=== PATIENT | female | born 1955 ===

== ENCOUNTER 2020-10-16 20:12 | Emergency (ER) | payer BC, SELFPAY ==
[2020-10-16 21:20] LABS: Basophils % 0.8 % (0-1.3); Hematocrit 35.4 % (36.0-45.0); Lymphocytes % 50.3 % (15.3-44.8); MPV 6.7 fL (7.6-11.3); RBC Red Blood Cell Count 3.31 M/uL (3.86-4.86)
[2020-10-16 21:26] LABS: Protime INR 0.98
[2020-10-16] MEDS ORDERED: NA CHLORIDE 0.9% 1,000 ML ONE ×2 (21:42→23:26)
[2020-10-16 22:09] LABS: ALT/SGPT 17 U/L (12-78); AST/SGOT 30 U/L (15-37); Albumin 3.4 g/dL (3.4-5.0); Alkaline Phosphatase 52 U/L (45-117); BUN Blood Urea Nitrogen 4 mg/dL (7-18); Bicarbonate 27 mmol/L (21-32); Bilirubin Direct 0.2 mg/dL (0-0.2); Bilirubin Total 0.5 mg/dL (0.2-1.0); Glucose Level 88 mg/dL (74-106); Magnesium 2.2 mg/dL (1.8-2.4); NT PRO-BNP 221 pg/mL (<125); Potassium 2.7 mmol/L (3.5-5.1); Protein, Total 6.8 g/dL (6.4-8.2); Sodium Level 142 mmol/L (136-145); Troponin (Emerg Dept Use Only) < 0.02 ng/mL (0.0-0.045)
[2020-10-16 23:03] LABS: Blood Morphology Comment NOTED (NOT SEEN); Macrocytosis SLIGHT; Platelet Estimate ADEQ; White Blood Cell Scan OK (OK)
[2020-10-16] MEDS ORDERED: THIAMINE 200 MG/2 ML INJ ONE (23:26)
[2020-10-16] MEDS ORDERED: FOLIC ACID 5 MG/ML VIAL ONE (23:26)
[2020-10-16] MEDS ORDERED: MULTIVITAMINS 10 ML VIAL (INJ) IV ONE (23:26)
[2020-10-16] MEDS ORDERED: KCL 20 MEQ/100 mL IVPB 20 MEQ/100 ML BAG IV ONE (23:27)
--- NOTE | 2020-10-17 04:44 | ER ---
Nurse's Notes [facility] Name: Alley Michelle Age: 65 yrs Sex: Female : 1955 Arrival Date: 10/16/2020 Time: 20:55 Bed 5 Private MD: Diagnosis: Fall (on) (from) unspecified stairs and steps;Alcohol use, unspecified with intoxication Presentation: 10/16 21:00 Chief complaint: EMS states: unwitnessed fall in the kitchen around 1830H, no LOC but rr5 she more and more forgetful to what happened on her. sustained lacerated wound back of the head. 21:00 Coronavirus screen: Client denies travel out of the [place] in the last 14 days. At this rr5 time, the client does not indicate any symptoms associated with coronavirus-19. Ebola Screen: Unable to complete the Ebola screening because:. Initial Sepsis Screen: Does the patient meet any 2 criteria? No. Patient's initial sepsis screen is negative. Does the patient have a suspected source of infection? No. Patient's initial sepsis screen is negative. Risk Assessment: Do you want to hurt yourself or someone else? Unable to obtain. Onset of symptoms was October 16, 2020 at 18:30. Care prior to arrival: Cervical collar in place. 21:00 Method Of Arrival: EMS: [facility] rr5 21:00 Acuity: OPAL 2 rr5 Historical: - Allergies: 21:08 PENICILLINS; rr5 21:08 Aspirin; rr5 - Home Meds: 21:08 metoprolol succinate oral oral [Active]; Ramipril Oral [Active]; tramadol Oral rr5 [Active]; Trazodone Oral [Active]; - PMHx: 21:08 Hypertension; rr5 - Immunization history:: Adult Immunizations unknown. - Social history:: Smoking status: unknown. Screenin:10 Abuse screen: Denies threats or abuse. Denies injuries from another. Nutritional rr5 screening: No deficits noted. Tuberculosis screening: No symptoms or risk factors identified. Fall risk At risk due to injury, age, prior history of falls, Intervention for positive screen: ED Physician notified, instructed to call for assist when getting up, side rails up. Exposure risk/Travel Screening: None identified. Primary Survey: 21:00 NO uncontrolled hemorrhage observed. A: The patient is alert. Airway: patent, Oral rr5 cavity: clear, gag reflex present, Trachea midline. Breathing/Chest: Respiratory pattern: regular, Respiratory effort: spontaneous, unlabored, Breath sounds: clear, bilaterally. Chest inspection: symmetrical rise and fall of the chest. Circulation: Pulses: palpable right radial artery and left radial artery. Disability Alert. Exposure/Environment: All clothing and personal items were removed. There is no evidence of uncontrolled external bleeding. Obvious injury(ies) are noted at this time: lacerated wound back of the head A warming method has been applied: A warm blanket has been provided to the patient. 22:00 Reassessment Airway Airway Patent Oral cavity Clear +Gag reflex Trachea Midline rr5 Breathing/Chest Respiratory pattern Regular Respiratory effort Spontaneous Unlabored Breath sounds Clear Chest inspection Symmetrical Circulation Pulses Palpable Disability Alert. Secondary Survey: 21:10 HEENT: Head Other lacerated wound. Gastrointestinal: Abdomen is flat. : No signs rr5 and/or symptoms were reported regarding the genitourinary system. Musculoskeletal: Capillary refill < 3 seconds. Assessment: 21:10 General: Appears in no apparent distress. comfortable, Behavior is calm, cooperative. rr5 Pain: Unable to use pain scale. Patient is disoriented. Neuro: Level of Consciousness is awake, alert, confused, Oriented to person. EENT: No signs and/or symptoms were reported regarding the EENT system. Cardiovascular: Capillary refill < 3 seconds Patient's skin is warm and dry. Respiratory: Airway is patent Respiratory effort is even, unlabored, Respiratory pattern is regular, symmetrical. GI: No signs and/or symptoms were reported involving the gastrointestinal system. Derm: Skin is intact, is healthy with good turgor, Skin temperature is warm. Musculoskeletal: Capillary refill < 3 seconds. 23:04 Reassessment: [id number] FRANCISCO rv Vital Signs: 21:00 BP 144 / 46; Pulse 72; Resp 16; Temp 98; Pulse Ox 98% ; Weight 55 kg; rr5 22:00 BP 136 / 89; Pulse 75; Resp 17; Temp 98.1; Pulse Ox 98% ; rr5 23:00 BP 125 / 89; Pulse 79; Resp 17; Pulse Ox 100% ; rr5 23:49 BP 135 / 70; Pulse 70; Resp 16; Pulse Ox 98% ; rr5 ED Course: 20:55 Patient arrived in ED. iw 20:55 Kym Conroy MD is Attending Physician. ma2 20:58 Rolando Pereira PA is PHCP. cp 21:02 Reid Giraldo, MARIANELA is Primary Nurse. rr5 21:05 Inserted saline lock: 20 gauge in right forearm, using aseptic technique. ,using rr5 aseptic technique. inserted by robin Blood collected. 21:06 Triage completed. rr5 21:08 Arm band placed on right wrist. rr5 21:12 Patient has correct armband on for positive identification. Placed in gown. Bed in low rr5 position. Call light in reach. Side rails up X2. front desk monitor on. Pulse ox on. NIBP on. 21:31 CT Traumagram (Head C Spine CAP wo con) In Process Unspecified. EDMS 21:40 XRAY Chest (1 view) In Process Unspecified. EDMS 23:49 IV discontinued, patient pulled her IV. rr5 23:49 Inserted saline lock: 18 gauge in left forearm, using aseptic technique. rr5 Administered Medications: 21:19 Drug: NS 0.9% 1000 ml Route: IV; Rate: 125 ml/hr; Site: right forearm; rv 23:00 Drug: NS 0.9% 500 ml Route: IV; Rate: bolus; Site: left forearm; rr5 10/17 04:01 Follow up: IV Status: Completed infusion; IV Intake: 500ml rv 10/16 23:15 Drug: Banana Bag - (NS 0.9% 1000 ml, foLIC Acid 1 mg, Thiamine 100 mg, Multivitamin 1 rr5 amp) Route: IV; Rate: 150 ml/hr; Site: left forearm; 10/17 04:01 Follow up: IV Status: Completed infusion; IV Intake: 1000ml rv 10/16 23:20 Drug: Potassium Chloride 20 mEq Route: IV; Rate: calculated rate; Site: left forearm; rr5 10/17 04:01 Follow up: IV Status: Completed infusion; IV Intake: 100ml rv Intake: 04:01 IV: 500ml; Total: 500ml. rv 04:01 IV: 1000ml; Total: 1500ml. rv 04:01 IV: 100ml; Total: 1600ml. rv Outcome: 04:44 Discharge ordered by . ma2 05:49 Patient left the ED. rr5 Signatures: Dispatcher [employer] Carla Mcallister RN RN Rolando Landa PA PA cp Alzahri, Mohammad, MD MD ma2 Edin Antoine RN RN rv Reid Giraldo RN RN rr5 Corrections: (The following items were deleted from the chart) 10/16 21:08 21:00 Chief complaint: EMS states: unwitnessed fall in the kitchen around 1830H, no LOC rr5 but she more and more forgetful to what happened on her rr5
--- NOTE | 2020-10-17 04:44 | EDPHYS ---
Physician Documentation [facility] Name: Alley Michelle Age: 65 yrs Sex: Female : 1955 Arrival Date: 10/16/2020 Time: 20:55 Bed 5 Private MD: ED Physician Kym Conroy HPI: 10/16 21:00 This 65 yrs old Female presents to ER via EMS with complaints of Fall Injury. cp 21:00 Details of fall: The patient fell from an upright position, while walking. cp 21:00 Onset: The symptoms/episode began/occurred just prior to arrival. Associated injuries: cp The patient sustained injury to the head, laceration, of the right occipital area. EMS reports they were called to home of patient after unwitnessed fall tonight. Patient reports losing balance and falling in kitchen. Historical: - Allergies: 21:08 PENICILLINS; rr5 21:08 Aspirin; rr5 - Home Meds: 21:08 metoprolol succinate oral oral [Active]; Ramipril Oral [Active]; tramadol Oral rr5 [Active]; Trazodone Oral [Active]; - PMHx: 21:08 Hypertension; rr5 - Immunization history:: Adult Immunizations unknown. - Social history:: Smoking status: unknown. ROS: 21:05 Constitutional: Negative for fever. cp 21:05 Cardiovascular: Negative for chest pain. cp 21:05 Respiratory: Negative for cough, shortness of breath. 21:05 Abdomen/GI: Negative for abdominal pain, vomiting, diarrhea, constipation. 21:05 MS/extremity: Positive for pain, of the right hip, Negative for decreased range of motion, deformity. 21:05 Skin: Positive for laceration(s), of the scalp. 21:05 Neuro: Negative for loss of consciousness, seizure activity, syncope. 21:05 All other systems are negative. Exam: 21:10 Constitutional: The patient appears in no acute distress, alert, awake, cp non-diaphoretic, non-toxic, well developed, frail. 21:10 Head/face: Noted is a laceration(s), that is deep, of the right occipital area. cp 21:10 Eyes: Periorbital structures: appear normal, Pupils: equal, round, and reactive to light and accomodation, Extraocular movements: intact throughout, Conjunctiva: normal, no exudate, no injection, Lids and lashes: appear normal, bilaterally. 21:10 ENT: External ear(s): are unremarkable, Nose: is normal, Mouth: is normal, Posterior pharynx: Airway: no evidence of obstruction, patent. 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 21:10 Chest/axilla: Inspection: normal, Palpation: is normal, no crepitus, no tenderness. 21:10 Cardiovascular: Rate: normal, Rhythm: regular. 21:10 Respiratory: the patient does not display signs of respiratory distress, Respirations: normal, no use of accessory muscles, no retractions, labored breathing, is not present, Breath sounds: are clear throughout, no decreased breath sounds. 21:10 Abdomen/GI: Inspection: abdomen appears normal, Palpation: abdomen is soft and non-tender, in all quadrants. 21:10 Musculoskeletal/extremity: Extremities: grossly normal except: noted in the right hip: pain, There is no evidence of decreased ROM, deformity. 21:10 Neuro: Orientation: to person, situation, Mentation: able to follow commands, slow to respond, Motor: moves all fours, strength is normal. 21:41 ECG was reviewed by the Attending Physician. cp Vital Signs: 21:00 BP 144 / 46; Pulse 72; Resp 16; Temp 98; Pulse Ox 98% ; Weight 55 kg; rr5 22:00 BP 136 / 89; Pulse 75; Resp 17; Temp 98.1; Pulse Ox 98% ; rr5 23:00 BP 125 / 89; Pulse 79; Resp 17; Pulse Ox 100% ; rr5 23:49 BP 135 / 70; Pulse 70; Resp 16; Pulse Ox 98% ; rr5 Laceration: 10/17 00:15 Wound Repair of 3cm ( 1.2in ) subcutaneous laceration to scalp. Distal cp neuro/vascular/tendon intact. Wound prep: Simple cleansing by nurse. Skin closed with 4 1-0 Isabel using staple gun. Patient tolerated well. MDM: 10/16 20:55 Patient medically screened. ma2 10/17 01:30 Data reviewed: vital signs, nurses notes, lab test result(s), EKG, radiologic studies, cp CT scan. Transition of care: After a detail discussion of the patient's case, care is transferred to Kym Conroy MD. 10/16 20:56 Order name: Basic Metabolic Panel [facility] 10/16 20:56 Order name: CBC with Diff [facility] 10/16 20:56 Order name: Type And Screen [facility] 10/16 20:56 Order name: LFT's; Complete Time: 22:40 ma2 10/16 22:40 Interpretation: Normal except: A/G 1.0. cp 10/16 20:56 Order name: Magnesium; Complete Time: 22:40 ma2 10/16 20:56 Order name: NT PRO-BNP; Complete Time: 22:40 ma2 10/16 20:56 Order name: PT-INR; Complete Time: 22:40 nh2 10/16 20:56 Order name: Troponin (emerg Dept Use Only); Complete Time: 22:40 [facility] 10/16 20:57 Order name: Basic Metabolic Panel; Complete Time: 22:40 EDMS 10/16 22:40 Interpretation: Normal except: K 2.7; BUN 4; CRE 0.38. cp 10/16 20:57 Order name: CBC with Automated Diff; Complete Time: 00:45 EDMS 10/16 21:27 Interpretation: Normal except: RBC 3.31; HCT 35.4; MCV 107.1; MCH 38.3; RDW 15.3; MPV cp 6.7; LYM% 50.3. 10/16 20:57 Order name: Type and Screen; Complete Time: 22:40 EDMS 10/16 20:59 Order name: ETOH Level; Complete Time: 22:40 cp 10/16 22:40 Interpretation: Abnormal: ETOH 294. cp 10/16 20:56 Order name: CT Traumagram (Head C Spine CAP wo con) [facility] 10/16 20:56 Order name: Labs collected and sent; Complete Time: 21:19 nh2 10/16 20:56 Order name: XRAY Chest (1 view) [facility] 10/16 20:56 Order name: EKG; Complete Time: 20:58 nh2 10/16 20:56 Order name: Cardiac monitoring; Complete Time: 21:19 ma2 10/16 20:56 Order name: EKG - Nurse/Tech; Complete Time: 04:02 nh2 10/16 20:56 Order name: IV Saline Lock; Complete Time: 21:19 [facility] 10/16 20:56 Order name: O2 Per Protocol; Complete Time: 21:19 [facility] 10/16 20:56 Order name: O2 Sat Monitoring; Complete Time: 21:19 [facility] 10/16 20:59 Order name: Urine Dipstick-Ancillary (obtain specimen); Complete Time: 04:02 cp 10/16 23:04 Order name: CBC Smear Scan; Complete Time: 00:45 EDMS EC/05 21:41 Rate is 67 beats/min. Rhythm is regular. DC interval is normal. QRS interval is normal. cp QT interval is prolonged at 478 msec. T waves are Inverted in leads aVL, aVR. Interpreted by me. Reviewed by me. Administered Medications: 21:19 Drug: NS 0.9% 1000 ml Route: IV; Rate: 125 ml/hr; Site: right forearm; rv 23:00 Drug: NS 0.9% 500 ml Route: IV; Rate: bolus; Site: left forearm; rr5 10/17 04:01 Follow up: IV Status: Completed infusion; IV Intake: 500ml rv 10/16 23:15 Drug: Banana Bag - (NS 0.9% 1000 ml, foLIC Acid 1 mg, Thiamine 100 mg, Multivitamin 1 rr5 amp) Route: IV; Rate: 150 ml/hr; Site: left forearm; 10/17 04:01 Follow up: IV Status: Completed infusion; IV Intake: 1000ml rv 10/16 23:20 Drug: Potassium Chloride 20 mEq Route: IV; Rate: calculated rate; Site: left forearm; rr5 10/17 04:01 Follow up: IV Status: Completed infusion; IV Intake: 100ml rv Disposition: 04:43 Co-signature as Attending Physician, Kym Conroy MD. nh2 Disposition: 10/17/20 04:44 Discharged to Home. Impression: Fall (on) (from) unspecified stairs and steps, Alcohol use, unspecified with intoxication. - Condition is Stable. - Discharge Instructions: Fall Prevention in the Home. - Prescriptions for Diclofenac Sodium 75 mg Oral Tablet Sustained Release - take 1 tablet by ORAL route 2 times per day; 30 tablet. Klor- Con 8 mEq Oral Tablet Sustained Release - take 1 tablet by ORAL route once daily; 20 tablet. - Medication Reconciliation Form, Thank You Letter, Antibiotic Education, Prescription Opioid Use form. - Follow up: Private Physician; When: Tomorrow; Reason: If symptoms return. Signatures: Dispatcher [employer] EDMS Rolando Pereira PA PA cp Alzahri, Mohammad, MD MD ma2 Edin Antoine RN RN Reid Nicole RN RN rr5 Corrections: (The following items were deleted from the chart) 05:49 04:44 10/17/2020 04:44 Discharged to Home. Impression: Fall (on) (from) unspecified rr5 stairs and steps; Alcohol use, unspecified with intoxication. Condition is Stable. Prescriptions for Diclofenac Sodium 75 mg Oral Tablet Sustained Release - take 1 tablet by ORAL route 2 times per day; 30 tablet, Klor-Con 8 mEq Oral Tablet Sustained Release - take 1 tablet by ORAL route once daily; 20 tablet. and Forms are Medication Reconciliation Form, Thank You Letter, Antibiotic Education, Prescription Opioid Use. Follow up: Private Physician; When: Tomorrow; Reason: If symptoms return. ma2
[2020-10-17 06:00] VITALS: TEMP 98.1
[2020-10-17 06:02] VITALS: BP 135/70; O2SAT 98
--- NOTE | 2020-10-17 07:18 | EKG ---
Test Date: 2020-10-16 Test Time: 21:32:20 Systems Engineering Manager: RR MEASUREMENT RESULTS: Intervals: Rate: 67 NC: 134 QRSD: 96 QT: 478 QTc: 505 Willet: P: 65 NC: 134 QRS: 89 T: 64 INTERPRETIVE STATEMENTS: Normal sinus rhythm Nonspecific ST and T wave abnormality Prolonged QT Abnormal ECG No previous ECG available for comparison Electronically Signed On 10-17-20 07:17:30 CDT by Kalyan Snider
--- NOTE | 2020-10-17 08:52 | RAD REPORT ---
EXAM DESCRIPTION: RAD - Chest Single View - 10/16/2020 9:40 pm CLINICAL HISTORY: CONGESTION Chest pain. COMPARISON: No comparisons FINDINGS: Portable technique limits examination quality. Vague area of nodularity is seen projecting in the inferior aspect of the right lung. This is questio nable for possible area of underlying nodularity. The lungs are otherwise clear. The heart is normal in size. Nonemergent followup CT chest assessment may be considered.
--- NOTE | 2020-10-17 11:15 | RAD REPORT ---
EXAM DESCRIPTION: Head C Spine Cap Wo Con. RadLex: CT HEAD CERVICAL SPINE CHEST ABDOMEN PELVIS WITHOUT IV CONTRAST CLINICAL HISTORY: PAIN following a fall. TECHNIQUE: Axial, coronal, and sagittal images through the brain were performed in the absence of in travenous contrast. CT of the cervical spine was performed without contrast. Axial, coronal, and sagittal reconstructions were created and sent to PACS. CT of the chest, abdomen, and pelvis was performed without oral or intravenous contrast. Axial, coron al, and sagittal reconstructions were created and sent to PACS. These exams were performed according to our departmental dose-optimization program which includes use of Automated Exposure Control, adjustment of the mA and/or kV according to patient size and/or use o f iterative reconstruction technique. COMPARISON: None. FINDINGS: CT Head: There is diffuse age-appropriate atrophy seen throughout the brain parenchyma. Mild periventricular w jag matter changes are seen to be present and there is moderate ex vacuo dilatation of the ventricul ar system. There is no intra-axial or extra-axial bleed. There is no mass or mass effect. The visualized paranasal sinuses and mastoid air cells are patent. No fracture is identified. CT cervical spine: No acute osseous abnormality identified. Anterior cervical spine hardware with discectomy from C5 thr ough C7. Vertebral body height and alignment are maintained. No atlantodental interval widening. Atla ntoaxial alignment is maintained. C2-C3: Small posterior disc osteophyte complex. No significant central canal or neuroforaminal narrow ing. C3-C4: Posterior disc osteophyte complex results in borderline narrowing of the central canal to 0.8 cm AP. No significant neuroforaminal narrowing. C4-C5: Posterior disc osteophyte complex results in mild narrowing of the central canal to 0.6 to 0.7 cm AP. No significant neuroforaminal narrowing. C5-C6: Postsurgical level. No significant central canal or neuroforaminal narrowing. C6-C7: Postsurgical level. No significant central canal or neuroforaminal narrowing. Paraspinal soft tissues: Unremarkable. CT chest: Lungs and pleura: No pulmonary consolidation. No pleural effusion. No pneumothorax. Mild biapical ple ural parenchymal fibrosis. Mild diffuse pulmonary intralobular septal thickening. Few tiny peripheral micronodules in along the lateral pleura of the right upper lobe. Mediastinum and neck: No mediastinal lymphadenopathy identified by CT size criteria. Unremarkable iain earance of the thyroid gland. Cardiac: No cardiomegaly or pericardial effusion. No thoracic aortic aneurysm. Mild calcific aortic a therosclerosis. Small amount of coronary artery calcifications. CT abdomen/pelvis: Hepatobiliary: No obvious hepatic lesion identified. Gallbladder sludge. No gallbladder wall thickeni ng or surrounding inflammatory changes. No biliary ductal dilatation. Pancreas: Coarse calcification in the region of the pancreatic head, measuring 1 cm in extent right n o main pancreatic duct dilatation, or other pancreatic abnormality identified. Spleen: Unremarkable. Gastrointestinal: No evidence of bowel obstruction or perienteric inflammation. Changes suggestive of prior right hemicolectomy. No obvious bowel wall thickening or hematoma formation. Adrenals: No abnormality identified in either adrenal gland. Renal: Tiny calcification in the mid left kidney cortex, favored a parenchymal calcification. No obvi ous parenchymal abnormality in either kidney. No hydronephrosis or urolithiasis. Bladder/Reproductive: Mild diffuse bladder wall thickening in the setting of underdistention. Senesce nt changes of the uterus. Vascular/Lymphatics: No lymphadenopathy identified by CT size criteria. Abdominal aorta is normal in caliber. Musculoskeletal: No concerning osseous lesion identified. Prior healed multilevel right and left-side d rib fractures. No acute rib fracture is identified. Osteopenia. Transitional lumbosacral vertebral body, with and osseous fusion on the right. Degenerative minimal grade 1 anterolisthesis at L5-S1. Bi lateral proximal femoral hardware, with no obvious concerning perihardware lucencies. Heterotopic oss ification about the right femur greater and lesser trochanters. Fluid / peritoneum: No significant free fluid. No free intraperitoneal air identified. IMPRESSION 1. No acute intracranial abnormality identified. Chronic age-related and microvascular ischemic changes. 2. No acute osseous abnormality identified in the cervical spine. Postsurgical and degenerative gallito nges, as described. 3. No acute abnormality identified in the chest, abdomen, or pelvis. Chronic findings, as described . 4. Nonspecific small pancreatic head calcification, possibly a dystrophic calcification or sequela of chronic pancreatitis. Recommend follow-up CT or MRI in six months, versus comparison with any outs jeannie prior cross-sectional abdominal imaging, to evaluate for an underlying lesion. 5. Few tiny right upper lobe pulmonary nodules. If patient is low risk for malignancy, no routine f ollow-up imaging is recommended; if patient is high risk for malignancy, a non-contrast Chest CT at 1 2 months is optional (Reference: Radiology. 2017; 284(1):228-43). Electronically signed by: Jania Amezquita MD 10/16/2020 9:57 PM CDT Due to temporary technical issues with the PACS/Fluency reporting system, reports are being signed by the in house radiologist without review as a courtesy to ensure prompt reporting. The interpreting r adiologist is fully responsible for the content of the report.
== END 2020-10-17 05:49 | disposition home or self-care (01) ==
LOC: ER 20:12
PROC: 0JQ00ZZ Repair Scalp Subcutaneous Tissue and Fascia, Open Approach (ICD-10-PCS; principal; 2020-10-17)
DX: S01.01XA Laceration without foreign body of scalp, initial encounter (principal); F10.929 Alcohol use, unspecified with intoxication, unspecified; W10.9XXA Fall (on) (from) unspecified stairs and steps, initial encounter; Y92.000 Kitchen of unspecified non-institutional (private) residence as the place of occurrence of the external cause; I10 Essential (primary) hypertension; Z88.0 Allergy status to penicillin; Z88.6 Allergy status to analgesic agent
CPT/HCPCS: 36415; 70450; 71045; 71250; 72125; 80048; 80076; 80320; 83735; 83880; 84484; 85025; 85610; 86850; 86900; 86901; 93005; 96365; 96366; 99284; J3411; J3480; J7030

== ENCOUNTER 2020-11-12 22:55 | Emergency (ER) | payer BC ==
--- OUTSIDE RECORDS SUMMARY | 2020-11-12 22:58 | XMS REPORT | Continuity of Care Document ---
:1955 Author Organization [facility] t Address [address] [place] [address] Care Team Providers Name Role Phone Renny Wilder MD Attending Clinician Remigio Mathur MD Attending Clinician Annie Cat RN Attending Clinician Ck RIBEIRO Attending Clinician Alyssa RIBEIRO Attending Clinician Salena Washburn Attending Clinician Malini ANTONY, Jeyson Attending Clinician Jacob RIBEIRO Attending Clinician Regina Mensah MD Attending Clinician Doctor Unassigned, Name Attending Clinician Unavailable Radiology Attending Clinician Unavailable Alyssa RIBEIRO Admitting Clinician Jacob RIBEIRO Admitting Clinician Problems This patient has no known problems. Allergies, Adverse Reactions, Alerts Allergy Allergy Status Severity Reaction(s) Onset Inactive Treating Comm ents Source Name Type Date Date Clinician Peniclli Adverse Active Info Not [facility] aspirin Adverse Active Info Not [facility] Reaction Available [facility] Sulfa Adverse Active Info Not [facility] Reaction Available [facility] Medications Ordered Filled Start Stop Current Ordering Indication Dosage Frequency Signature Comments Components Source Medication Medication Date Date Medication? Clinician (SIG) Name Name Gabapentin Gabapentin Yes Isidro [address] [facility] Trazodone Trazodone Yes Isidro not [facility] HCl HCl Singh defined [facility] Filion Filion Yes Isidro [address] [facility] Singh as needed [facility] Xanax XR Xanax XR Yes Isidro not [facility] Singh defined [facility] Clobetasol Clobetasol Yes Isidro not [facility] Propionate Propionate [facility] defined [facility] Triamcinolo Triamcinolo Yes Isidro not [facility] ne ne [facility] defined [facility] Gatifloxaci Gatifloxaci Yes Isidro not [facility] n [facility] defined [facility] Tramadol Tramadol Yes Isidro not [facility] HCl HCl [facility] defined [facility] Nitrofurant Nitrofurant Yes Isidro not [facility] oin Monohyd oin Monohyd Singh defined [facility] Hydrocodone Hydrocodone Yes Isidro not [facility] -Acetaminop -Acetaminop Singh defined [facility] EPINEPHrine EPINEPHrine Yes Isidro not [facility] Singh defined [facility] Fluocinonid Fluocinonid Yes Isidro not [facility] e Singh defined [facility] Desonide Desonide Yes Isidro not [facility] defined [facility] Cephalexin Cephalexin Yes Isidro not [facility] defined [facility] Tobramycin- Tobramycin- Yes Isidro not [facility] Dexamethaso Dexamethaso Singh defined [facility] Lidocaine Lidocaine Yes Isidro not [facility] Omeprazole Omeprazole Yes Isidro not [facility] defined [facility] Klor-Con Klor-Con Yes Isidro not [facility] defined [facility] Procedures This patient has no known procedures. Encounters Start End Encounter Admission Attending Care Care Encounter Source Date/Time Date/Time Type Type Clinicians Facility Department ID 2020-06-17 2020-06-17 [facility] [id number] 2020-04-03 2020-04-03 [facility] [id number] 00:00:00 00:00:00 Renny SPECIALTY [id number] CARE [id number] [facility] [id number] 2020-04-02 2020-04-02 [facility] [id number] 00:00:00 00:00:00 Remigio PRIMARY [id number] CARE [id number] [facility] [id number] 2020-03-27 2020-03-27 Telephone [facility] 1.2.840.114 [id number] 00:00:00 00:00:00 Renny PRIMARY [id number] CARE [id number] [facility] [id number] 2020-03-14 2020-03-14 Transition Manda Cat [id number] 00:00:00 00:00:00 of Care Annie Ortiz [id number] [place] [id number] 2020-03-05 2020-03-13 [facility] Ck Brandt Hartleynie [id number] 19:43:00 17:57:00 Encounter Renny Shah [id number] Meño [facility] [id number] 2019-07-21 2019-07-21 Emergency Loreta [facility] [id number] 13:45:45 18:08:00 Gabriela Martino Abel [id number] [place] [id number] [place] [id number] 2019-07-11 2019-07-13 Emergency Mabel Nayak [facility] 1.2.840 .114 [id number] 12:20:20 14:15:00 Bradley James [id number] [place] [id number] [place] [id number] 2019-04-10 2019-04-10 [facility] [id number] [address] 11:00:00 11:00:00 [facility] ent Clinics 2019-02-16 2019-02-16 [facility] 1.2.840.114 [id number] 09:15:35 23:59:00 Encounter Ann Marie light [id number] [place] [id number] [place] [id number] 2019-02-16 2019-02-16 [facility] [id number] 09:00:00 09:14:00 Encounter Ann Marie light [id number] [place] [id number] [place] [id number] 2019-02-16 2019-02-16 Orders Doctor [facility] [id number] 00:00:00 00:00:00 Only Unassigned, CHELSEA [id number] [place] [facility] [id number] [id number] 2019-01-11 2019-01-11 [facility] Rad[facility] 1.2.840.114 [id number] 10:59:27 23:59:00 Encounter Abel [id number] [place] [id number] [place] [id number] 2019-01-11 2019-01-11 [facility] Radiology [facility] 1.2.840.114 [id number] 10:36:59 10:58:00 Encounter [place] [id number] [place] [id number] [place] [id number] 2019-01-11 2019-01-11 [facility] Radiology [facility] 1.2.840.114 [id number] 10:30:00 10:35:00 Encounter [place] [id number] [place] [id number] [place] [id number] 2018-08-08 2018-08-08 [facility] [id number] [address] 11:00:00 11:00:00 t [facility] Clinics 2018-07-07 2018-07-07 Outpatient Brazeugenio Kruegert [id number] 11:00:00 11:00:00 t [facility] Results This patient has no known results.
[2020-11-12] MEDS ORDERED: MORPHINE 4 MG/ML SYR ONE (23:38)
[2020-11-12] MEDS ORDERED: ONDANSETRON 4 MG/2 ML VIAL ONE (23:39)
--- NOTE | 2020-11-13 01:11 | ER ---
Nurse's Notes [facility] Name: Alley Michelle Age: 65 yrs Sex: Female : 1955 Arrival Date: 11/12/2020 Time: 22:56 Bed 13 Private MD: Diagnosis: Displaced transverse fracture of shaft of humerus, left arm Presentation: 11/12 23:27 Chief complaint: EMS states: patient fell at home. Fell on left shoulder. Pain 10/10 in jm8 left shoulder. Coronavirus screen: Client denies travel out of the [place] in the last 14 days. At this time, the client does not indicate any symptoms associated with coronavirus-19. Ebola Screen: Patient negative for fever greater than or equal to 101.5 degrees Fahrenheit, and additional compatible Ebola Virus Disease symptoms Patient denies exposure to infectious person. Patient denies travel to an Ebola-affected area in the 21 days before illness onset. Initial Sepsis Screen: Does the patient meet any 2 criteria? No. Patient's initial sepsis screen is negative. Does the patient have a suspected source of infection? No. Patient's initial sepsis screen is negative. Risk Assessment: Do you want to hurt yourself or someone else? Patient reports no desire to harm self or others. Onset of symptoms was November 12, 2020 at 22:30. 23:27 Method Of Arrival: EMS: [facility] 23:27 Acuity: OPAL 3 jm8 Historical: - Allergies: 23:32 PENICILLINS; jm8 23:32 Aspirin; jm8 - PMHx: 23:32 Hypertension; jm8 - PSHx: 23:32 None; jm8 - Immunization history:: Adult Immunizations up to date, Client reports having NOT received the Covid vaccine. - Social history:: Smoking status: unknown. - Family history:: not pertinent. - Hospitalizations: : No recent hospitalization is reported. Screenin:32 Abuse screen: Denies threats or abuse. Denies injuries from another. Nutritional 8 screening: No deficits noted. Tuberculosis screening: No symptoms or risk factors identified. Fall Risk Fall in past 12 months (25 points). IV access (20 points). Assessment: 23:33 General: Appears in no apparent distress. comfortable, Behavior is calm, cooperative, jm8 appropriate for age. Pain: Complains of pain in left shoulder Pain radiates to left elbow Pain currently is 10 out of 10 on a pain scale. Quality of pain is described as radiating, sharp, Pain began 1 hour ago. Aggravated by increased activity, Noted to be guarding, resistant to movement, Also complains of no other associated symptoms. Neuro: No deficits noted. Level of Consciousness is awake, alert, obeys commands, Oriented to person, place, time. Cardiovascular: No deficits noted. Respiratory: No deficits noted. Airway is patent Trachea midline Respiratory effort is even, unlabored, Respiratory pattern is regular, symmetrical. GI: No deficits noted. No signs and/or symptoms were reported involving the gastrointestinal system. : No deficits noted. No signs and/or symptoms were reported regarding the genitourinary system. EENT: No deficits noted. No signs and/or symptoms were reported regarding the EENT system. Derm: No deficits noted. No signs and/or symptoms reported regarding the dermatologic system. Musculoskeletal: Range of motion: intact in all extremities, Bony deformity noted of left shoulder Reports pain in left shoulder. Vital Signs: 23:27 BP 172 / 101; Pulse 82; Resp 16; Pulse Ox 100% on R/A; [facility] 23:27 Weight 58.97 kg; Height 5 ft. 1 in. (154.94 cm); Pain 10/10; 8 11/13 02:18 BP 145 / 78; Pulse 84; Resp 16; Pulse Ox 99% on R/A; 8 11/12 23:27 Body Mass Index 24.56 (58.97 kg, 154.94 cm) [facility] ED Course: 11/12 22:56 Patient arrived in ED. rn 22:56 Angel Santos MD is Attending Physician. rn 23:08 Inserted saline lock: 20 gauge in right forearm, using aseptic technique. 4 23:29 Triage completed. jm8 23:30 XRAY Shoulder LEFT 2 view In Process Unspecified. EDMS 23:32 Arm band placed on right wrist. jm8 23:33 Patient has correct armband on for positive identification. Bed in low position. Call [facility] light in reach. Side rails up X2. 11/13 00:15 CT Head C Spine In Process Unspecified. EDMS 00:43 XRAY Elbow LEFT 3 view In Process Unspecified. EDMS 01:10 Ricky Gleason MD is Referral Physician. rn 02:19 No provider procedures requiring assistance completed. IV discontinued, intact. jm8 Administered Medications: 11/12 23:26 Drug: Zofran (Ondansetron) 4 mg Route: IVP; Site: right forearm; 8 11/13 02:18 Follow up: Response: No adverse reaction [facility] 11/12 23:27 Drug: morphine 4 mg Route: IVP; Site: right forearm; 8 11/13 02:18 Follow up: Response: No adverse reaction [facility] Outcome: 01:10 Discharge ordered by . rn 02:09 Patient left the ED. mw2 02:19 Discharged to home via wheelchair, with family. 8 02:19 Condition: good 02:19 Discharge instructions given to patient, family, Instructed on discharge instructions, follow up and referral plans. medication usage, Demonstrated understanding of instructions, follow-up care, medications, Prescriptions given X 2. Signatures: Dispatcher [employer] EDMS Angel Santos MD MD rn [place], MyKena 2 Dakotah Snider 4 Theo Baig RN RN 8
--- NOTE | 2020-11-13 01:11 | EDPHYS ---
Physician Documentation [facility] Name: Alley Michelle Age: 65 yrs Sex: Female : 1955 Arrival Date: 11/12/2020 Time: 22:56 Bed 13 Private MD: ED Physician Angel Santos HPI: 11/12 23:45 This 65 yrs old Female presents to ER via EMS with complaints of left rn shoulder pain. 23:45 The patient or guardian complains of decreased range of motion, an injury, pain. left rn shoulder. Onset: The symptoms/episode began/occurred just prior to arrival. Modifying factors: the symptoms are alleviated by remaining still, The symptoms are aggravated by movement, rotation of arm. Severity of symptoms: At their worst the symptoms were moderate, in the emergency department the symptoms are unchanged. The patient has not experienced similar symptoms in the past. Reports got upsetting news, stood up, fell down, hurt left shoulder and left elbow. Denies head or neck pain but states hit back of head. Does not believe she is on blood thinners. . Historical: - Allergies: 23:32 PENICILLINS; jm8 23:32 Aspirin; jm8 - PMHx: 23:32 Hypertension; jm8 - PSHx: 23:32 None; jm8 - Immunization history:: Adult Immunizations up to date, Client reports having NOT received the Covid vaccine. - Social history:: Smoking status: unknown. - Family history:: not pertinent. - Hospitalizations: : No recent hospitalization is reported. ROS: 23:45 Constitutional: Negative for fever, chills, and weight loss, Eyes: Negative for injury, rn pain, redness, and discharge, Neck: Negative for injury, pain, and swelling, Cardiovascular: Negative for chest pain, palpitations, and edema, Respiratory: Negative for shortness of breath, cough, wheezing, and pleuritic chest pain, Abdomen/GI: Negative for abdominal pain, nausea, vomiting, diarrhea, and constipation, Back: Negative for injury and pain, MS/Extremity: + left elbow and left shoulder injury/pain Skin: Negative for injury, rash, and discoloration, Neuro: Negative for headache, weakness, numbness, tingling, and seizure. Exam: 23:45 Constitutional: This is a well developed, well nourished patient who is awake, alert, rn appears in pain, splinting left arm. Head/Face: Normocephalic, atraumatic. Eyes: Pupils equal round and reactive to light, extra-ocular motions intact. Lids and lashes normal. Conjunctiva and sclera are non-icteric and not injected. Cornea within normal limits. Periorbital areas with no swelling, redness, or edema. Neck: No midline spinal tenderness, no swelling or crepitus. Cardiovascular: Regular rate and rhythm. No pulse deficits. Respiratory: No increased work of breathing, no retractions or nasal flaring. Abdomen/GI: soft, non-tender Skin: Warm, dry, + mild bruising left shoulder MS/ Extremity: Pulses equal, no cyanosis. + tenderness and painful ROM left shoulder. + mild tenderness left elbow without deformity. Neuro: Awake and alert, GCS 15, oriented to person, place, time, and situation. Cranial nerves II-XII grossly intact. Motor strength 5/5 in all extremities. Sensory grossly intact. Vital Signs: 23:27 BP 172 / 101; Pulse 82; Resp 16; Pulse Ox 100% on R/A; [facility] 23:27 Weight 58.97 kg; Height 5 ft. 1 in. (154.94 cm); Pain 10/10; [facility] 11/13 02:18 BP 145 / 78; Pulse 84; Resp 16; Pulse Ox 99% on R/A; [facility] 11/12 23:27 Body Mass Index 24.56 (58.97 kg, 154.94 cm) [facility] MDM: 11/12 22:56 Patient medically screened. rn 11/13 01:08 Differential diagnosis: humeral head fracture. Data reviewed: vital signs, nurses rn notes, radiologic studies, CT scan, plain films, and as a result, I will discharge patient. Counseling: I had a detailed discussion with the patient and/or guardian regarding: the historical points, exam findings, and any diagnostic results supporting the discharge/admit diagnosis, radiology results, the need for outpatient follow up, to return to the emergency department if symptoms worsen or persist or if there are any questions or concerns that arise at home. Response to treatment: the patient's symptoms have markedly improved after treatment, and as a result, I will discharge patient. Special discussion: I discussed with the patient/guardian in detail that at this point there is no indication for admission to the hospital. It is understood, however, that if the symptoms persist or worsen the patient needs to return immediately for re-evaluation. Based on the history and exam findings, there is no indication for further emergent testing or inpatient evaluation. I discussed with the patient/guardian the need to see the orthopedic surgeon for further evaluation of the symptoms. ED course: CT head/cspine no acute findings, + left humeral neck fracture, placed in sling, will dc home with ortho f/u and pain medication. Return precautions given and understood.. 11/12 22:57 Order name: CT Head C Spine rn 11/12 22:57 Order name: XRAY Shoulder LEFT 2 view rn 11/12 22:57 Order name: XRAY Elbow LEFT 3 view rn 11/12 22:57 Order name: IV Start; Complete Time: 23:08 rn 11/12 23:41 Order name: Sling; Complete Time: 02:19 rn Administered Medications: 11/12 23:26 Drug: Zofran (Ondansetron) 4 mg Route: IVP; Site: right forearm; [facility] 11/13 02:18 Follow up: Response: No adverse reaction [facility] 11/12 23:27 Drug: morphine 4 mg Route: IVP; Site: right forearm; [facility] 11/13 02:18 Follow up: Response: No adverse reaction [facility] Disposition: 11/13/20 01:10 Discharged to Home. Impression: Displaced transverse fracture of shaft of humerus, left arm. - Condition is Stable. - Discharge Instructions: Humerus Fracture Treated With Immobilization. - Prescriptions for Tramadol 50 mg Oral Tablet - take 1 tablet by ORAL route every 8 hours as needed; 15 tablet. - Medication Reconciliation Form, Thank You Letter, Antibiotic Education, Prescription Opioid Use form. - Follow up: Ricky Gleason MD; When: 5 - 6 days; Reason: Recheck today's complaints, Re-evaluation by your physician. - Problem is new. - Symptoms have improved. Signatures: Dispatcher [employer] EDMS Angel Santos MD MD rn [place], MyKena mw2 Theo Baig RN RN jm8 Corrections: (The following items were deleted from the chart) 02:09 01:10 11/13/2020 01:10 Discharged to Home. Impression: Displaced transverse fracture of mw2 shaft of humerus, left arm. Condition is Stable. Forms are Medication Reconciliation Form, Thank You Letter, Antibiotic Education, Prescription Opioid Use. Follow up: Ricky Gleason; When: 5 - 6 days; Reason: Recheck today's complaints, Re-evaluation by your physician. Problem is new. Symptoms have improved. rn
[2020-11-13 02:13] VITALS: BP 172/101; O2SAT 100
--- NOTE | 2020-11-13 10:49 | RAD REPORT ---
EXAM DESCRIPTION: CT Head and Cervical Spine Without Intravenous Contrast CLINICAL HISTORY: The patient is 65 years old and is Female; fall;Pain TECHNIQUE: Axial computed tomography images of the head/brain and cervical spine without intravenous contrast. Sagittal and coronal reformatted images were created and reviewed. This CT exam was pe rformed using one or more of the following dose reduction techniques: automated exposure control, a djustment of the mA and/or kV according to patient size, and/or use of iterative reconstruction techn ique. COMPARISON: CT October 16, 2020 FINDINGS: BRAIN: Minimal basal ganglia calcifications are present. There is diffuse cerebral atrop hy present, consistent with this patient's age. There is patchy hypoattenuation of the deep white m atter which is non-specific, but most likely owing to chronic small vessel ischemic change in a patie nt of this age group. No intracranial hemorrhage, mass effect, or midline shift is seen. There are no extra-axial fluid collections. VENTRICLES: Unremarkable. No ventriculomegaly. SKULL: No acute fracture. SINUSES: Unremarkable as visualized. No acute sinusitis. MASTOID AIR CELLS: Unremarkable as visualized. No mastoid effusion. VERTEBRAE: The vertebral body heights and alignment are maintained. No acute fracture. DISCS/SPINAL CANAL/NEURAL FORAMINA: Evidence of anterior cervical disc fusion from C5 through C7 is noted. The hardware is engaged. Intervertebral disc space narrowing with osteophyte formation a nd mild discal calcification at C3-C4 and C4-C5 is present. Minimal effacement upon the anterior thec al sac is noted at these levels. There is no significant canal stenosis or neural foraminal narrowing . SOFT TISSUES: The soft tissues are normal. LUNG APICES: Unremarkable as visualized. IMPRESSION: 1. No acute intracranial findings. 2. Postsurgical and spondylotic change of the cervical spine without acute findings. Electronically signed by: Dalia Valladares MD 11/13/2020 12:46 AM CDT Due to temporary technical issues with the PACS/Fluency reporting system, reports are being signed by the in house radiologist without review as a courtesy to ensure prompt reporting. The interpreting r adiologist is fully responsible for the content of the report.
--- NOTE | 2020-11-13 10:49 | RAD REPORT ---
EXAM DESCRIPTION: Elbow Left 3 View RadLex: XR ELBOW 3 VIEWS CLINICAL HISTORY: PAIN. COMPARISON: None. TECHNIQUE: Three views of the left elbow were obtained: AP, oblique, and lateral radiographs. FINDINGS: Suboptimal patient positioning. No obvious acute osseous abnormality or joint effusion. Ti ny chronic olecranon enthesophyte. Osteopenia. IMPRESSION: 1. Suboptimal exam due to patient positioning. 2. No obvious acute osseous abnormality or joint effusion. Electronically signed by: Jania Amezquita MD 11/13/2020 1:05 AM CDT Due to temporary technical issues with the PACS/Fluency reporting system, reports are being signed by the in house radiologist without review as a courtesy to ensure prompt reporting. The interpreting r adiologist is fully responsible for the content of the report.
--- NOTE | 2020-11-13 10:51 | RAD REPORT ---
EXAM DESCRIPTION: XR Left Shoulder Complete, 2 or More Views CLINICAL HISTORY: The patient is 65 years old and is Female; PAIN TECHNIQUE: Two or more views of the left shoulder. COMPARISON: No relevant prior studies available. FINDINGS: BONES/JOINTS: Fracture of the left humeral neck is present with impaction at the fractur e site. The humeral head remains located. No dislocation. SOFT TISSUES: Unremarkable. IMPRESSION: Left humeral neck fracture. Electronically signed by: Dalia Valladares MD 11/13/2020 12:42 AM CDT Due to temporary technical issues with the PACS/Fluency reporting system, reports are being signed by the in house radiologist without review as a courtesy to ensure prompt reporting. The interpreting r adiologist is fully responsible for the content of the report.
== END 2020-11-13 02:09 | disposition home or self-care (01) ==
LOC: ER 22:55
DX: S42.322A Displaced transverse fracture of shaft of humerus, left arm, initial encounter for closed fracture (principal); W19.XXXA Unspecified fall, initial encounter; I10 Essential (primary) hypertension; Z88.0 Allergy status to penicillin; Z88.6 Allergy status to analgesic agent
CPT/HCPCS: 70450; 72125; 73080; 73030; J2405; 96374; 96375; 99284